=== PATIENT | male | born 1995 | race Caucasian/White ===

== ENCOUNTER 2018-12-24 17:52 | Emergency (ER) | payer SELFPAY ==
--- NOTE | 2018-12-24 18:19 | ER Document Report ---
ED Medical Screen (RME) - General Chief Complaint: Medical Clearance Stated Complaint: WITHDRAWAL/DRUGS Time Seen by Provider: 12/24/18 18:08 Notes: Patient is a 23-year-old male presents to the emergency department with law enforcement. Patient is currently IVC'd, and was brought over by [facility] from [facility]. Patient states that he willingly went there 2 days ago to get help detoxing from heroin. Patient states he does use heroin, fentanyl and Xanax. Patient reports he last used 2 days ago. Patient states he is in the middle of detox when an officer showed up to bring him to the emergency department to get medically cleared. Patient reports he woke up this morning and did vomit twice but has since improved. Patient has not vomited since but continues to have nausea. Patient denies SI or HI. TRAVEL OUTSIDE OF THE [place] IN LAST 30 DAYS: No - Related Data Allergies/Adverse Reactions: acetaminophen Allergy (Verified 12/24/18 17:53) Past Medical History - Social History Frequency of alcohol use: Heavy Renal/ Medical History: Denies: Hx Peritoneal Dialysis Physical Exam - Vital signs Vitals: Temp Pulse Resp BP Pulse Ox 98.2 F 59 L 18 119/58 L 96 12/24/18 18:00 12/24/18 18:00 12/24/18 18:00 12/24/18 18:00 12/24/18 18:00 - Respiratory Respiratory status: No respiratory distress Chest status: Nontender Breath sounds: Normal Chest palpation: Normal - Cardiovascular Rhythm: Regular Heart sounds: Normal auscultation, S1 appreciated, S2 appreciated - Abdominal Inspection: Normal Distension: No distension Bowel sounds: Normal Tenderness: Nontender Organomegaly: No organomegaly Course - Re-evaluation Re-evalutation: 12/24/18 18:19 I have greeted and performed a rapid initial assessment of this patient. A comprehensive ED assessment and evaluation of the patient, analysis of test results and completion of the medical decision making process will be conducted by additional ED providers. - Vital Signs Vital signs: Temp Pulse Resp BP Pulse Ox 98.2 F 59 L 18 119/58 L 96 12/24/18 18:00 12/24/18 18:00 12/24/18 18:00 12/24/18 18:00 12/24/18 18:00
[2018-12-24] MEDS ORDERED: ONDANSETRON 4 MG TAB.RAPDIS PO ONE (18:20)
[2018-12-24 19:17] LABS: ABSOLUTE EOSINOPHILS # (AUTO) 0.3 10^3/uL (0.0-0.6); ABSOLUTE LYMPHOCYTES (AUTO) 1.9 10^3/uL (0.5-4.7); ABSOLUTE MONOCYTES (AUTO) 0.7 10^3/uL (0.1-1.4); ABSOLUTE NEUT (AUTO) 3.4 10^3/uL (1.7-8.2); BASOPHILS % (AUTO) 0.6 % (0-2); EOSINOPHILS % (AUTO) 4.7 % (0-6); HEMATOCRIT 40.3 % (37.9-51.0); HEMOGLOBIN 13.6 g/dL (13.5-17.0); MEAN CORPUSCULAR HEMOGLOBIN 29.3 pg (27.0-33.4); MEAN CORPUSCULAR HGB CONC 33.9 g/dL (32.0-36.0); MEAN CORPUSCULAR VOLUME 86 fl (80-97); MONOCYTES % (AUTO) 10.5 % (3-13); PLATELET COUNT 233 10^3/uL (150-450); RED BLOOD COUNT 4.66 10^6/uL (4.35-5.55); RED CELL DISTRIBUTION WIDTH 14.3 % (11.5-14.0); SEGMENTED NEUTROPHILS % (AUTO) 54.2 % (42-78); TOTAL CELLS COUNTED % (AUTO) 100 %; WHITE BLOOD COUNT 6.3 10^3/uL (4.0-10.5)
[2018-12-24] MEDS ORDERED: OLANZAPINE 5 MG TAB.RAPDIS PO ONE (19:25)
[2018-12-24 19:34] LABS: ALBUMIN 4.2 g/dL (3.5-5.0); ALKALINE PHOSPHATASE 72 U/L (38-126); ANION GAP 9 (5-19); ASPARTATE AMINO TRANSFERASE 16 U/L (17-59); BILIRUBIN,DIRECT 0.2 mg/dL (0.0-0.4); BILIRUBIN,TOTAL 0.3 mg/dL (0.2-1.3); BLOOD UREA NITROGEN 11 mg/dL (7-20); CALCIUM 9.8 mg/dL (8.4-10.2); CARBON DIOXIDE 27 mmol/L (22-30); CHLORIDE 105 mmol/L (98-107); GLUCOSE 90 mg/dL (75-110); POTASSIUM 4.7 mmol/L (3.6-5.0); TOTAL PROTEIN 7.4 g/dL (6.3-8.2)
[2018-12-24 19:35] LABS: ACETAMINOPHEN < 10 ug/mL (10-30); ALCOHOL < 10 mg/dL (NONE DETECTED); SALICYLATE < 1.0 mg/dL (2.0-20.0)
[2018-12-24 20:18] LABS: APPEARANCE,URINE CLEAR; BILIRUBIN,URINE NEGATIVE (NEGATIVE); COLOR,URINE STRAW; GLUCOSE, URINE NEGATIVE (NEGATIVE); KETONES,URINE NEGATIVE (NEGATIVE); LEUKOCYTE ESTERASE,URINE SMALL (NEGATIVE); NITRITE,URINE NEGATIVE (NEGATIVE); PROTEIN,URINE NEGATIVE (NEGATIVE); URINE SPECIFIC GRAVITY 1.006; UROBILINOGEN,URINE NEGATIVE mg/dL (<2.0)
[2018-12-24 20:28] LABS: URINE AMPHETAMINES SCREEN NEGATIVE; URINE BARBITURATES SCREEN NEGATIVE; URINE BENZODIAZEPINES SCREEN NEGATIVE; URINE COCAINE SCREEN NEGATIVE; URINE MARIJUANA (THC) SCREEN NEGATIVE; URINE METHADONE SCREEN NEGATIVE; URINE PHENCYCLIDINE SCREEN NEGATIVE
[2018-12-24] MEDS ORDERED: ZIPRASIDONE MESYLATE INJ/PF 20 MG SDV IM ONE (21:01)
--- NOTE | 2018-12-24 23:10 | ER Document Report ---
Addendum entered and electronically signed by BRADFORD FARFAN LCSWA 12/25/18 12:29: Discharge - Discharge Clinical Impression: Suicidal ideation, Heroin abuse Condition: Stable Disposition: HOME, SELF-CARE Additional Instructions: You have been evaluated both medical and behavioral health teams and been deemed appropriate for discharge. You are highly encouraged to continue your current path for sobriety. You have been provided a local resource list of area providers including mobile crisis contact information. NARCOTIC / OPIOD ABUSE: Narcotics and opiods are pain-relieving drugs that are often abused. They are addicting. Narcotics cause euphoria, but it often takes increasing amounts to "feel good" and avoid withdrawal symptoms. Overdose of narcotics causes small pupils, coma, and decreased breathing. It's a common cause of . Purity of street narcotics is unpredictable. Injection of narcotics is risky for abscesses, endocarditis (heart infection), pneumonia, and AIDS. Withdrawal from narcotics causes goose bumps, watery mouth, sweating, nasal congestion, muscle aches, abdominal cramps, vomiting, and diarrhea. There's often restlessness and confusion. Treatment programs are available, but you must make the decision to quit. Medication (such as clonidine) can be prescribed to control the symptoms of withdrawal. FOLLOW-UP CARE: If you have been referred to a physician for follow-up care, call the physicians office for an appointment as you were instructed or within the next two days. If you experience worsening or a significant change in your symptoms, notify the physician immediately or return to the Emergency Department at any time for re-evaluation. Referrals: [facility] [Outside] - Follow up in 3-5 days Scribe Attestation: 12/24/18 23:10 I personally performed the services described in the documentation, reviewed and edited the documentation which was dictated to the scribe in my presence, and it accurately records my words and actions. Addendum entered and electronically signed by ALEKSANDER RICHARDSON MD 12/24/18 23:30: Course - Re-evaluation Re-evalutation: 12/24/18 23:27 Patient was seen with muscle twitching and was given Ativan and Benadryl with improvement. Vital signs are stable. - Vital Signs Vital signs: Temp Pulse Resp BP Pulse Ox 98.2 F 59 L 18 119/58 L 96 12/24/18 18:00 12/24/18 18:00 12/24/18 18:00 12/24/18 18:00 12/24/18 18:00 - Laboratory Result Diagrams: 12/24/18 18:55 12/24/18 18:55 Laboratory results interpreted by me: 12/24/18 12/24/18 12/24/18 18:55 18:55 18:55 RDW 14.3 H AST 16 L Ur Leukocyte Esterase SMALL H Salicylates < 1.0 L Acetaminophen < 10 L Original Note: Entered by ARMIDA FAJARDO SCRIBE 12/24/18 166 Acting as scribe for:MAYCOL ROGEL DO ED Psych Disorder / Suicide - General Chief Complaint: Medical Clearance Stated Complaint: WITHDRAWAL/DRUGS Time Seen by Provider: 12/24/18 18:08 Cannot obtain history due to: Uncooperative Notes: Patient is a 23-year-old male that was sent here from [facility] for heroin withdrawal. The patient states he "does not know why he is here". Patient told the nurse at triage that he last injected heroin 2 days ago. Patient is uncooperative so history is limited. Patient requests "something to eat and something to sleep". IVC paperwork that was brought in with the patient states "There is a plan to danger self and others at this time. He is in detox for high use of heroin and Xanax. If he leaves the facility he will OD. He has told staff members that when he leaves the facility he has heroin at home. He is abusing illegal drugs mainly heroin." TRAVEL OUTSIDE OF THE [place] IN LAST 30 DAYS: No - Related Data Allergies/Adverse Reactions: acetaminophen Allergy (Verified 12/24/18 17:53) Past Medical History - General Information source: Patient Cannot obtain history due to: Uncooperative - Social History Smoking Status: Current Every Day Smoker Cigarette use (# per day): Yes Frequency of alcohol use: Heavy Drug Abuse: Heroin Family History: Reviewed & Not Pertinent Patient has suicidal ideation: No Patient has homicidal ideation: No Renal/ Medical History: Denies: Hx Peritoneal Dialysis Review of Systems - Review of Systems -: Yes ROS unobtainable due to patient's medical condition - states he does not know why he is here, uncooperative. Physical Exam - Vital signs Vitals: Temp Pulse Resp BP Pulse Ox 98.2 F 59 L 18 119/58 L 96 12/24/18 18:00 12/24/18 18:00 12/24/18 18:00 12/24/18 18:00 12/24/18 18:00 Interpretation: Normal - General General appearance: Appears well, Alert - HEENT Head: Normocephalic, Atraumatic Eyes: Normal Pupils: PERRL - Respiratory Respiratory status: No respiratory distress Chest status: Nontender Breath sounds: Normal Chest palpation: Normal - Cardiovascular Rhythm: Regular Heart sounds: Normal auscultation Murmur: No - Abdominal Inspection: Normal Distension: No distension Bowel sounds: Normal Tenderness: Nontender Organomegaly: No organomegaly - Back Back: Normal, Nontender - Extremities General upper extremity: Normal inspection, Nontender, Normal color, Normal ROM, Normal temperature General lower extremity: Normal inspection, Nontender, Normal color, Normal ROM, Normal temperature, Normal weight bearing. No: Karie's sign - Neurological Neuro grossly intact: Yes Cognition: Normal Orientation: AAOx4 [place] Coma Scale Eye Opening: Spontaneous [place] Coma Scale Verbal: Oriented [place] Coma Scale Motor: Obeys Commands [place] Coma Scale Total: 15 Speech: Normal Motor strength normal: LUE, RUE, LLE, RLE Sensory: Normal - Psychological Associated symptoms: Agitated, Irritable - Skin Skin Temperature: Warm Skin Moisture: Dry Skin Color: Normal Course - Re-evaluation Re-evalutation: 12/24/18 23:07 Patient is a 23-year-old male who apparently told his counselor that he was going to lower his dose of heroin until he would be able to overdose and kill himself. Patient tells me that he does not know why he is here. Denies any complaints except that he wants to go to sleep. Patient does admit to drug abuse. He is medically stable. He has been given Zyprexa and Geodon for agitation. Patient has eaten without any difficulty. He will be held for mental health evaluation in the morning. He is already been placed on involuntary commitment paperwork by his counselor. - Vital Signs Vital signs: Temp Pulse Resp BP Pulse Ox 98.2 F 59 L 18 119/58 L 96 12/24/18 18:00 12/24/18 18:00 12/24/18 18:00 12/24/18 18:00 12/24/18 18:00 - Laboratory Result Diagrams: 12/24/18 18:55 12/24/18 18:55 Laboratory results interpreted by me: 12/24/18 12/24/18 12/24/18 18:55 18:55 18:55 RDW 14.3 H AST 16 L Ur Leukocyte Esterase SMALL H Salicylates < 1.0 L Acetaminophen < 10 L Discharge - Discharge Clinical Impression: Suicidal ideation, Heroin abuse Condition: Stable Disposition: PSYCH HOSP/UNIT Scribe Attestation: 12/24/18 23:10 I personally performed the services described in the documentation, reviewed and edited the documentation which was dictated to the scribe in my presence, and it accurately records my words and actions. I personally performed the services described in the documentation, reviewed and edited the documentation which was dictated to the scribe in my presence, and it accurately records my words and actions.
[2018-12-24] MEDS ORDERED: LORAZEPAM INJ 2 MG/1 ML VIAL IM ONE (23:24)
[2018-12-24] MEDS ORDERED: DIPHENHYDRAMINE HCL 50 MG/ML VIAL IM ONE (23:25)
[2018-12-25] MEDS ORDERED: CYCLOBENZAPRINE HCL 10 MG TABLET PO ONE (09:34)
--- NOTE | 2018-12-25 09:34 | ER Document Report ---
Doctor's Note Notes: 12/25/18 09:33 Patient is a 23-year-old male that was sent here from [facility] for heroin withdrawal. The patient states he "does not know why he is here". Patient told the nurse at triage that he last injected heroin 2 days ago. As the rounding physician this AM, I assessed the patient's labs, vitals, and records. No concerning findings this morning. Patient complaining of extremity cramping but states otherwise he feels better than he did yesterday. Disposition per behavioral health team PHYSICAL EXAMINATION: GENERAL: Well-appearing, well-nourished and in no acute distress. HEAD: Atraumatic, normocephalic. EYES: Pupils equal round extraocular movements intact, conjunctiva are normal. ENT: Nares patent NECK: Normal range of motion LUNGS: No respiratory distress Musculoskeletal: Normal range of motion NEUROLOGICAL: Normal speech, normal gait. PSYCH: Normal mood, normal affect. SKIN: Warm, Dry, normal turgor, no rashes or lesions noted.
--- NOTE | 2018-12-25 10:58 | EKG REPORT ---
SEVERITY:- NORMAL ECG - SINUS RHYTHM : Confirmed by: Melody Guthrie 25-Dec-2018 10:57:37
--- NOTE | 2018-12-25 12:25 | PSYCHOLOGICAL NOTE ---
Psych Note - Psych Note Date seen by psych provider: 12/25/18 Time seen by psych provider: 09:30 Psych Note: Reason for Consult: IVC Patient reports he arrived to [facility] ED via "police car." He disclosed that he had been at the [facility] for detox and that the third day which he identifies as "the worst day during detox" he became very agitated. "I woke up and horrible mood and they would give me my meds so I told him I was just can be going home and doing drugs anyway." Patient adamantly denies that he ever stated he go home to do drugs with intent to harm himself or overdose. When asked about having 3 bags of heroin at home and disclosing that he would use that overdose he again denied and stated "if I had 3 bags of heroin I would have used it before coming to detox." Patient disclosed he is feeling much better now that he is over the worst part of his withdrawals. He is interested in continued assistance with sobriety and indicates he would like to get into intensive outpatient services. Patient was provided local resource list however the patient lives in [place]. Patient is alert and orientated to person, place, time and circumstance. Mood is euthymic with congruent affect as evidenced by smiling engaging with clinician. Patient denies suicidal homicidal ideation. delusions are absent behaviors congruent with an intact reality based presentation I organized and linear thought process. Eye contact is well-maintained. Conversational speech is within normal rate, tone and prosody. Intellectual abilities appear to be within the average range. Attention and concentration are currently good. Insight, judgment, impulse control are fair. Polysubstance abuse No medication recommendations at this time Impression/plan: Patient is recommended for rescind of IVC and is cleared from acute psychiatric services. Patient confirms he disclosed to [facility] that he would go home and use heroin again however denies that this was a disclosure of suicidal ideation. He denies having any heroin in his home stating that "if I had 3 bags of heroin I would have used it before coming to detox." Patient states he made those comments on day 3 which he identifies as were stay for detox; "I woke up and horrible mood it was the third day of my detox they were giving the my meds, I told them it did not matter because I was going to go home and do drugs anyway." Dr. Rincon was consulted to care management of this patient; attending physicians in agreement with recommendations and disposition.
[2018-12-25 13:52] VITALS: BP 122/67
== END 2018-12-25 14:00 | disposition home or self-care (01) ==
LOC: ER 17:52
DX: R45.851 Suicidal ideations (principal); F11.10 Opioid abuse, uncomplicated; R25.3 Fasciculation
CPT/HCPCS: 93005; 99285; 96372; 36415; 80307 ×4; 85025; 80053; 81001; 93010; J3490; J1200; S0119; J2060; J3486